=== PATIENT | male | born 1960 ===

== ENCOUNTER 2017-06-05 10:42 | Day surgery (SDC) | payer OTHER ==
[2017-01-26 10:05] VITALS: BMI 28.8
[2017-06-05] MEDS ORDERED: Propofol 10 mg/ml Inj (20 ML) ONE (11:56)
[2017-06-05 12:35] VITALS: TEMP 97.3
[2017-06-05 12:51] VITALS: RESP 12
[2017-06-05 13:01] VITALS: O2SAT 99
[2017-06-05 13:13] VITALS: BP 128/74; PULSE 68
== END 2017-06-05 13:25 | disposition home or self-care (01) ==
LOC: C.ENDO 10:42
PROVIDERS: ATTEND Internal Medicine
DX: Z12.11 Encounter for screening for malignant neoplasm of colon (principal); K57.30 Diverticulosis of large intestine without perforation or abscess without bleeding; K64.8 Other hemorrhoids; E11.9 Type 2 diabetes mellitus without complications; I10 Essential (primary) hypertension; E78.00 Pure hypercholesterolemia, unspecified; D12.5 Benign neoplasm of sigmoid colon
CPT/HCPCS: 45380; 82948; 88305; J2704